=== PATIENT | male | born 1940 | race Caucasian/White ===

== ENCOUNTER 2024-09-09 08:06 | Outpatient (CLI) | payer MEDICARE | END 2024-09-09 08:07 | disposition home or self-care (01) | LOC: CSHWCC 08:06 | PROVIDERS: ATTEND Nurse Practitioner Family | DX: S51.801D Unspecified open wound of right forearm, subsequent encounter (principal); E11.622 Type 2 diabetes mellitus with other skin ulcer; L98.499 Non-pressure chronic ulcer of skin of other sites with unspecified severity | CPT/HCPCS: 11102; G0463; 88305; 99213 ==